=== PATIENT | female | born 1970 | race Caucasian/White ===

== ENCOUNTER 2019-12-27 09:47 | Outpatient (CLI) | payer BC, SELFPAY ==
--- NOTE | ~2019-12-27 | NM_ITS ---
EXAMINATION: NM hepatobiliary wo pharm DATE: 12/27/2019 13:21 INDICATION: Diarrhea. COMPARISON: CT abdomen and pelvis 11/04/2017 TECHNIQUE: 4.8 mCi Tc-99m mebrofenin (Choletec) was administered intravenously. Scintigraphic images of the abdomen were obtained for one hour. Then, the patient drank 8 oz Ensure, and imaging was cont inued for 60 minutes. FINDINGS: There is normal clearance of radiotracer from the blood pool. There is homogeneous tracer u ptake by the liver. Activity progresses to the bowel and gallbladder. Gallbladder ejection fraction (GBEF) was 80%. Note that with this technique, normal GBEF >= 33%. IMPRESSION: 1. Normal hepatobiliary scintigraphy. Reviewed, dictated and finalized at location A.
== END 2019-12-27 09:48 | disposition home or self-care (01) ==
PROVIDERS: PCP Physician Assistant; Visit Provider Physician Assistant
DX: R19.7 Diarrhea, unspecified (principal)
CPT/HCPCS: 78226; A9537

== ENCOUNTER 2020-01-28 00:09 | Outpatient (CLI) | payer BC, SELFPAY ==
[2020-01-28 19:45] LABS: SARS-CoV-2 RNA PCR Negative
== END 2020-01-28 00:10 | disposition home or self-care (01) ==
LOC: ANHCOVIDDT 00:09
PROVIDERS: PCP Physician Assistant; Visit Provider Internal Medicine Gastroenterology
DX: Z01.818 Encounter for other preprocedural examination (principal); Z11.59 Encounter for screening for other viral diseases
CPT/HCPCS: 87635; C9803; U0003

== ENCOUNTER 2020-01-30 03:01 | Day surgery (SDC) | payer BC, SELFPAY ==
[2020-01-27 13:41] VITALS: BMI 36.6
--- NOTE | 2020-01-30 09:07 | P.PNAN_ITS ---
Anes - Initial Pre Proc Eval Procedure: Operation Date: 01/30/20 10:30 Proposed Procedures p Colonoscopy - Rigo Kinney DO Date/Time: 01/30/20 09:07 Surgeon: Rigo Kinney DO Pre Op Diagnosis: Diarrhea Patient Data Age: 49 Gender: F Height: 1.65 m Weight: 100 kg Allergies Allergy/AdvReac Type Severity Reaction Status Date / Time No Known Allergies Allergy Verified 01/30/20 10:02 Home Medications Medication Instructions Recorded Confirmed Type adalimumab [Humira(CF) Pen] 40 mg SUBCUT WEEKLY 01/27/20 01/27/20 History ergocalciferol (vitamin D2) 1,250 mcg PO WEEKLY 01/27/20 01/27/20 History leflunomide 20 mg PO DAILY 01/27/20 01/27/20 History Patient hx anesthesia problems: none Family hx anesthesia problems: none [facility] Past Medical History Medical History (Updated 01/30/20 @ 09:08 by Elmer Singh MD) Gastroesophageal reflux disease Obese body habitus Psoriasis Rheumatoid arthritis Surgical History Surgical History (Updated 01/30/20 @ 09:08 by Elmer Singh MD) H/O bariatric surgery H/O: hysterectomy Family History Family History (Updated 03/27/14 @ 07:13 by DOCTOR UNKNOWN) Other Depression Family history of mental disorder Family history of suicide Social History Social History Smoking status: Never smoker Alcohol intake: never Anes - Eval Final PreProcedure Day of Procedure 01/30/20 09:07 Patient weight: obese Heart: regular rate and rhythm Lungs: clear to auscultation and normal air movement Airway: Mallampati scale class II Neurological: alert and oriented Last oral intake: >/= 8 hours ASA classification: II Emergent: no Anesthetic plan: proceed Anesthesia type and monitoring: general GIVS Informed Consent: The patient's anesthetic plan and its attendant risks and benefits were discussed with the patient/family/POA. Questions were solicited and answers provided to the satisfaction of the patient/family/POA.
[2020-01-30 10:10] VITALS: BP 148/87; PULSE 71; RESP 18; TEMP 36.1; O2SAT 100
[2020-01-30] MEDS: LACTATED RINGERS 1,000 ML 150 ML IV CONT (10:27)
--- NOTE | 2020-01-30 10:47 | PM.IMHP ---
H&P: HPI History of Present Illness Chief complaint: Diarrhea Narrative: Reason for visit colonoscopy. Impression: There very pleasant lady with urgency and diarrhea. This may be secondary to lying irritable bowel syndrome. With evaluate for underlying inflammatory neoplastic disease. She does have family history colorectal cancer. Rheumatoid arthritis. Tobacco abuse. Obesity. Recommendation: Colonoscopy. History: This very pleasant lady's here for colonoscopy. She has complaints of diarrhea since October. She will have a pretty much daily with urgency. She Have about 4-5 episodes of diarrhea per day. She will occasionally [place] nocturnally. Fever, chills, mouth sores, rashes, hematochezia, melena and acholic stools night. Upper gastrointestinal symptoms are denied. She does have some abdominal cramping with the diarrhea. The patient does have a family history of colon cancer. Physical examination: General: very pleasant patient in no acute distress. HEENT: Head was normocephalic sclerae is clear mouth without masses neck was supple. Heart: Rate rhythm regular without S3 or S4. Lungs: CTA. Abdomen: Soft with no guarding or rigidity. Bowel sounds were active. Neurologic: Cranial nerves 2 through 12 intact. No focal defects. No clonus. Musculoskeletal system: Revealed no joint tenderness or swelling no muscle atrophy. Extremities: Reveal no significant edema. Skin: Warm and dry with normal turgor. Mental status: intact. Patient is alert and oriented. Review of Systems Review of Systems: All systems reviewed & are unremarkable except as noted in HPI and below PMFSH Past Medical History Medical History (Updated 01/30/20 @ 10:49 by Rigo Kinney DO) Obese body habitus Psoriasis Rheumatoid arthritis Tobacco abuse Surgical History Surgical History (Updated 01/30/20 @ 09:08 by Elmer Singh MD) H/O bariatric surgery H/O: hysterectomy Family History Family History (Updated 03/27/14 @ 07:13 by DOCTOR UNKNOWN) Other Depression Family history of mental disorder Family history of suicide Social History Social History Smoking status: Never smoker Alcohol intake: never Meds Home Medications and Allergies Home Medications Medication Instructions Recorded Confirmed Type adalimumab [Humira(CF) Pen] 40 mg SUBCUT WEEKLY 01/27/20 01/30/20 History ergocalciferol (vitamin D2) 1,250 mcg PO WEEKLY 06/29/20 07/02/20 History leflunomide 20 mg PO DAILY 01/27/20 01/30/20 History Allergies Allergy/AdvReac Type Severity Reaction Status Date / Time No Known Allergies Allergy Verified 01/30/20 10:02 Vital Signs Vital Signs - 24 hr 01/30/20 10:10 Temperature 36.1 C L Pulse Rate 71 Respiratory Rate 18 Blood Pressure 148/87 H Pulse Oximetry 100
[2020-01-30 11:53] VITALS: BP 114/71; PULSE 76; RESP 16; O2SAT 98
[2020-01-30 12:02] VITALS: BP 112/70; PULSE 66; RESP 20; O2SAT 100
[2020-01-30 12:13] VITALS: BP 127/80; PULSE 65; RESP 17; O2SAT 100
== END 2020-01-30 12:22 | disposition home or self-care (01) ==
PROVIDERS: PCP Physician Assistant; Visit Provider Internal Medicine Gastroenterology
PROC: 0DJD8ZZ Inspection of Lower Intestinal Tract, Via Natural or Artificial Opening Endoscopic (ICD-10-PCS; CPT 45378; principal; 2020-01-30 10:30)
DX: R19.7 Diarrhea, unspecified (principal); K63.5 Polyp of colon; K21.9 Gastro-esophageal reflux disease without esophagitis; M06.9 Rheumatoid arthritis, unspecified; L40.9 Psoriasis, unspecified; E66.9 Obesity, unspecified; Z68.36 Body mass index [BMI] 36.0-36.9, adult; Z98.84 Bariatric surgery status
CPT/HCPCS: 45380; 88305; J2704; J7120

== ENCOUNTER 2020-07-09 16:21 | Outpatient (CLI) | payer BC, SELFPAY ==
--- NOTE | ~2020-07-09 | MM_ITS ---
EXAMINATION: MM screening charley BI w anju HISTORY: Screening TECHNIQUE: Craniocaudal and mediolateral oblique 3-D tomosynthesis images were obtained and synthetic 2-D images were generated. CAD analysis was submitted and interpreted. COMPARISON: 04/28/2014 BREAST PARENCHYMAL COMPOSITION: There are scattered areas of fibroglandular density. FINDINGS: There is no evidence of suspicious mass, calcification, or architectural distortion to sugg est malignancy in either breast. There has been no suspicious interval change. IMPRESSION: 1. No mammographic evidence of malignancy. 2. Recommend routine screening mammography in one year. BI-RADS Category 1: Negative Reviewed, dictated and finalized at location A. SERVICE TECHNICIAN
== END 2020-07-09 16:22 | disposition home or self-care (01) ==
PROVIDERS: PCP Physician Assistant; Visit Provider Physician Assistant
DX: Z12.31 Encounter for screening mammogram for malignant neoplasm of breast (principal)
CPT/HCPCS: 77063; 77067

== ENCOUNTER 2022-10-25 03:56 | Emergency (ER) | payer BC, SELFPAY ==
--- NOTE | ~2022-10-25 | CT_ITS ---
EXAMINATION: CT abdomen pelvis wo con DATE: 10/25/2022 07:39 INDICATION: Kidney stone. TECHNIQUE: Computed tomography (CT) of the abdomen and pelvis was performed without intravenous contr ast. Automated exposure control and iterative reconstruction technique were employed. The dose-length product was 545.65 mGy-cm. COMPARISON: CT abdomen and pelvis 11/04/2017 FINDINGS: The visualized portions of the lung bases demonstrate minimal atelectasis. No pleural effus ion. The heart size is normal. There are coronary artery calcifications. No pericardial effusion. The re is a small sliding hiatal hernia. There are changes of gastric sleeve procedure. There is diffuse hepatic steatosis. Calcifications in the liver and spleen are consistent with old granulomatous disea se. The gallbladder, pancreas, adrenal glands, and right kidney are normal. There is a 4 mm stone in left kidney. There are no dilated loops of bowel. The appendix is normal. There are no pathologically enlarged lymph nodes. There is no free intraperitoneal fluid. There is mild chronic anterior wedging of multiple thoracic vertebral bodies. There is mild thoracic and lumbar spondylosis. IMPRESSION: 1. 4 mm nonobstructing left kidney stone. Reviewed, dictated and finalized at location A.
[2022-10-25 04:01] VITALS: BP 142/90; PULSE 62; RESP 18; O2SAT 97
[2022-10-25 06:44] LABS: Basophils Absolute Auto 0.1 K/mm3 (0.0-0.1); Eosinophils Absolute Auto 0.2 K/mm3 (0-0.3); Eosinophils Percent Auto 3.4 % (0-4.4); Hematocrit 40.5 % (37.0-47.0); Hemoglobin 13.5 g/dL (12.0-15.0); Immature Granulocyte Absolute 0.02 K/mm3 (0.00-0.031); Immature Granulocyte Percent A 0.3 % (0-0.5); Lymphocytes Absolute Auto 2.33 K/mm3 (0.9-3.2); Lymphocytes Percent Auto 39.8 % (18.3-44.2); Mean Corpuscular HGB Conc 33.3 g/dl (32-36); Mean Corpuscular Hemoglobin 31.3 pg (26-34); Mean Platelet Volume 11.1 fl (7.4-10.4); Monocytes Absolute Auto 0.5 K/mm3 (0.1-0.6); Monocytes Percent Auto 7.7 % (2.6-8.5); Neutrophils Absolute Auto 2.8 K/mm3 (1.3-6.7); Neutrophils Percent Auto 47.8 % (45.5-73.1); Platelet Count Result 232 k/mm3 (150-375); Red Blood Count 4.31 M/mm3 (4.2-5.4); Red Cell Distribution Width 12.8 % (11.5-14.5); White Blood Count 5.9 K/mm3 (4.5-10.0)
[2022-10-25 06:50] LABS: Alanine Aminotransferase 30 U/L (6-35); Albumin Level 4.2 g/dL (3.5-5.1); Alkaline Phosphatase 90 U/L (38-126); Anion Gap 5 mmol/L (8-16); Aspartate Amino Transferase 24 U/L (14-36); Bilirubin,Total 0.6 mg/dL (0.2-1.3); Blood Urea Nitrogen 17 mg/dL (7-17); Calcium 9.1 mg/dL (8.4-10.2); Carbon Dioxide 29 mmol/L (22-30); Chloride 105 mmol/L (98-107); Estimated CRCL calculation 130 ml/min; Estimated Glomerular Filt Rate > 60; Glucose 107 mg/dL (65-110); Lipase 87 U/L (23-300); Potassium 4.4 mmol/L (3.4-5.0); Sodium 139 mmol/L (137-145)
[2022-10-25 06:59] LABS: Appearance Urine Cloudy (Clear); Bacteria Urine None Seen /hpf; Bilirubin Urine Negative (Negative); Blood Urine Negative (Negative); Color Urine Yellow (Yellow); Glucose Urine UA Negative (Negative); Ketones Urine Negative (Negative); Leukocyte Esterase Ur Trace LEU/UL (Negative); Nitrate Urine Negative (Negative); Non Pathogenic Casts 0-2; Protein Urine Negative (Negative); RBC Urine 0-2 /hpf (0-2); Specific Grav Ur 1.022 (1.001-1.035); Squamous Epithelial Cell Urine Occasional /hpf (Few); pH Urine 7.5 (5.0-9.0)
[2022-10-25 07:15] LABS: Add Urine Microscopic? YES
--- NOTE | 2022-10-25 07:22 | ED.ABDPAIN ---
HPI - Abdominal Pain General Chief Complaint: Abdominal Pain Stated Complaint: Kidney stone Time Seen by Provider: 10/25/22 07:18 Source: patient Mode of arrival: ambulatory Limitations: no limitations History of Present Illness HPI narrative: 52 years old female came with the chief complaint of increased frequency of urination, burning sensation, right flank pain right lower back pain started 24 hours ago. History of kidney stone. Hysterectomy and gastric sleeve. She denies any aggravating or relieving factors. History of rheumatoid arthritis been off Humira for the last 2 years Related Data Home Medications Medication Instructions Recorded Confirmed adalimumab 40 mg/0.4 mL 40 mg subcut WEEKLY 01/27/20 01/30/20 subcutaneous pen kit (Humira(CF) Pen) ergocalciferol (vitamin D2) 1,250 1,250 mcg PO WEEKLY 01/27/20 01/30/20 mcg (50,000 unit) capsule leflunomide 20 mg tablet 20 mg PO DAILY 01/27/20 01/30/20 Allergies Allergy/AdvReac Type Severity Reaction Status Date / Time topiramate Allergy Palpitation Verified 10/25/22 08:01 s Review of Systems Review of Systems: All systems reviewed & are unremarkable except as noted in HPI and below PMFSH Past Medical History Medical History IBS (irritable bowel syndrome) Obese body habitus Psoriasis Rheumatoid arthritis Tobacco abuse Surgical History Surgical History H/O bariatric surgery H/O colonoscopy H/O: hysterectomy Family History Family History Other Depression Family history of mental disorder Family history of suicide Social History Social History Smoking status: Never smoker Alcohol intake: never Exam Narrative: General appearance: Well-developed, well-nourished Skin: Normal color Head: Normocephalic, nontraumatic Eyes: Clear conjunctiva ENT: Oropharynx normal, ears normal, nose normal Neck: Supple, nontender Chest and respiratory: Airway patent, no respiratory distress, no accessory muscle use Heart: Regular rate/rhythm Abdomen: Right lower quadrant, right flank tenderness, quiet bowel sounds Vascular: Normal peripheral pulses, normal capillary refill. Musculoskeletal: Normal range of motion, nontender back Neurologic: Alert and oriented ?3, PER DIEM INTERPRETER is normal as tested, no gross motor deficit Course Reevaluation(s) Reevaluation #1: Feeling much better, IV fluid and Dilaudid IV. Date: 10/25/22 Time: 09:17 Vital Signs Vital signs: Vital Signs Pulse Rate 62 10/25/22 04:01 Respiratory Rate 18 10/25/22 04:01 Blood Pressure 142/90 H 10/25/22 04:01 Pulse Oximetry 97 10/25/22 04:01 Pulse Rate 62 10/25/22 04:01 Respiratory Rate 18 10/25/22 04:01 Blood Pressure 142/90 H 10/25/22 04:01 Pulse Oximetry 97 10/25/22 04:01 MDM - Abdominal Pain MDM Narrative Medical decision making narrative: Differential diagnosis including kidney stone, urinary tract infection, appendicitis, diverticulitis, musculoskeletal pain. Work-up today showed normal CBC, normal CMP, normal urine, CT scan of the abdomen and pelvis without contrast showed 4 mm nonobstructing left kidney stone.. Lower back musculoskeletal pain is my concern. History of rheumatoid arthritis been off Humira for the last 2 years. the pt was discharged to home.the pt,s condition upon discharge was fair,education was provided to the pt in reference to the final impression,discharge study results,treatment,prognosis and need for follow up . Differential Ronda
[2022-10-25 07:24] VITALS: BP 182/103; PULSE 100; RESP 16; O2SAT 100
[2022-10-25] MEDS: HYDROmorphone HCL INJ (*CRX) 1 MG/ML SYR 0.5 MG IV PUSH (08:09)
[2022-10-25] MEDS: ONDANSETRON INJ 4 MG/2 ML VIAL IV PUSH (08:10)
[2022-10-25] MEDS: SODIUM CHLORIDE 0.9% IV 1,000 ML 999 ML IV CONT (08:10)
== END 2022-10-25 09:42 | disposition home or self-care (01) ==
PROVIDERS: Emergency Medicine; Emergency Provider Emergency Medicine; PCP Nurse Practitioner Family
DX: M54.50 Low back pain, unspecified (principal); K58.9 Irritable bowel syndrome, unspecified; M06.9 Rheumatoid arthritis, unspecified; Z87.442 Personal history of urinary calculi; Z90.710 Acquired absence of both cervix and uterus; Z98.84 Bariatric surgery status; N20.0 Calculus of kidney
CPT/HCPCS: 36415; 74176; 80053; 81001; 81025; 83690; 85025; 87086; 96361; 96374; 96375; 99284; J1170; J2405; J7030